=== PATIENT | male | born 1960 | race Caucasian/White ===

== ENCOUNTER 2020-09-06 11:27 | Day surgery (SDC) | payer OTHER, SELFPAY ==
[2020-09-03 10:17] VITALS: BMI 22.2
--- NOTE | 2020-09-04 10:22 | HO.ANESPROP2 ---
Documented by User: Georgia Carbajal 09/05/20 08:27 HPI - Anesthesia Eval Consult details Narrative: 60yo M for Colonoscopy s/p R CEA 12/2019. Stable at PCP visit 06/2020 Per patient, recent eval by life management teacher for floaters on R side. No acute concern. Rx'd glasses. [facility] Past Medical History Medical History Elevated cholesterol History of CVA (cerebrovascular accident) Hypothyroidism Peripheral vascular disease Surgical History Surgical History History of carotid endarterectomy Hx of colonoscopy Social History Social History Alcohol intake: never Smoking Status: Never smoker Use of substances other than those prescribed or required for medical reasons: No Advance Directives: No Advance Directives Information Provided: No Advance Directives on File: No Meds Allergies Allergy/AdvReac Type Severity Reaction Status Date / Time No Known Allergies Allergy Verified 09/04/20 10:24 Home Medications Medication Instructions Recorded Confirmed Type aspirin [Aspir-81] 81 mg PO DAILY 09/02/20 09/02/20 History multivitamin 1 tab PO DAILY 09/02/20 09/02/20 History atorvastatin 80 mg PO BEDTIME 09/03/20 09/03/20 History folic acid 1 mg PO DAILY 09/03/20 09/03/20 History levothyroxine 50 mcg PO DAILY 09/03/20 09/03/20 History Exam Exam Date and Time: September 04, 2020 1022 Height,Weight and Vital Signs: Height 5 ft 10 in Weight 70.307 kg Documented by User: Boubacar Dela Cruz 09/06/20 13:36 [facility] Past Medical History Medical History Elevated cholesterol History of CVA (cerebrovascular accident) Hypothyroidism Peripheral vascular disease Surgical History Surgical History History of carotid endarterectomy Hx of colonoscopy Social History Social History Alcohol intake: never Smoking Status: Never smoker Use of substances other than those prescribed or required for medical reasons: No Advance Directives: No Advance Directives Information Provided: No Advance Directives on File: No Meds Allergies Allergy/AdvReac Type Severity Reaction Status Date / Time No Known Allergies Allergy Verified 09/04/20 10:24 Home Medications Medication Instructions Recorded Confirmed Type aspirin [Aspir-81] 81 mg PO DAILY 09/02/20 09/02/20 History multivitamin 1 tab PO DAILY 09/02/20 09/02/20 History atorvastatin 80 mg PO BEDTIME 09/03/20 09/03/20 History folic acid 1 mg PO DAILY 09/03/20 09/03/20 History levothyroxine 50 mcg PO DAILY 09/03/20 09/03/20 History Exam Airway Mallampati Class: II TM Dist: >3cm Neck ROM: Full
[2020-09-06 12:43] VITALS: BP 139/89; PULSE 60; RESP 18; TEMP 36; O2SAT 99
[2020-09-06] MEDS: Lactated Ringers 1,000 ML 100 ML IVCONT (12:58)
--- NOTE | 2020-09-06 13:41 | MHC.SHP ---
Pre-Procedural Eval Section B Chief Complaint: Screening Details of Present Illness: screening Relevant Family History (Specify if Yes): No Relevant Social History: None Present Medications: see Short Stay Collaborative assessment Medical History: No relevant PMH History of Previous Operations: No relevant previous surgery Allergies: Allergies Allergy/AdvReac Type Severity Reaction Status Date / Time No Known Allergies Allergy Verified 09/04/20 10:24 Review of Systems Sugical H&P ROS: Negative: Constitution, Cardiovascular, Respiratory, Neurological, Psychiatric, Hem-Onc, Allergic/Immunologic, Gastrointestinal, Genitourinary, Musculoskeletal, Integumentary, Endocrine and Eyes/Ears/Nose/Throat Exam Surgical H&P Exam: Normal: HEENT, Normal: Heart, Normal: Lungs, Normal: Extremities, Normal: Abdomen, Normal: Skin and Normal: Neurological Plan Diagnosis/Plan: Unchanged I have reviewed the history and physical and performed a pertinent physical examination on my patient. No changes have occurred unless specified.
[2020-09-06 14:06] VITALS: BP 91/53; PULSE 60; RESP 18; TEMP 36.4; O2SAT 98
--- NOTE | 2020-09-06 14:10 | PM.OP ---
Brief Operative Note Date of Service: 09/06/20 Pre-op diagnosis: screening Post-op diagnosis: same Surgeon: Joseph Peña Anesthesia: MAC Estimated blood loss (mL): 0 Pathology: none sent Condition: stable Disposition: PACU
[2020-09-06 14:20] VITALS: BP 102/65; PULSE 55; RESP 11
[2020-09-06 14:35] VITALS: BP 105/66; PULSE 58; RESP 13; O2SAT 100
[2020-09-06 14:50] VITALS: BP 115/70; PULSE 58; RESP 13; TEMP 36.8; O2SAT 100
--- NOTE | 2020-09-06 23:31 | OP_ITS ---
SURGEON: Joseph Peña MD INDICATIONS: Colon cancer screening. PREOPERATIVE DIAGNOSIS: POSTOPERATIVE DIAGNOSIS: PROCEDURE PERFORMED: Colonoscopy to the terminal ileum. ESTIMATED BLOOD LOSS: COMPLICATIONS: ANESTHESIA: ASSISTANTS: SPECIMENS: MEDICATIONS: Monitored anesthesia care. DESCRIPTION OF PROCEDURE: History and physical performed. The risks and benefits of the procedure were explained to the patient. Informed consent was obtained. The patient was placed in left lateral decubitus position. A digital rectal exam was performed and was found to be normal. The Olympus pediatric video colonoscope was introduced into the rectum and advanced to the cecum without difficulty. The cecum was identified by transillumination, palpation, and identification of ileocecal valve. Examination was performed and the scope was removed. He tolerated the procedure well and was taken to recovery in stable condition. FINDINGS: The terminal ileum was normal. The visualized colonic mucosa was within normal limits without evidence of masses or ulcers. No polyps were identified. The quality of the prep was good. Retroflexed examination showed small internal hemorrhoids. IMPRESSION: Negative screening colonoscopy. RECOMMENDATION: 1. Follow up as needed. 2. Repeat colonoscopy is recommended in 10 years for average risk individuals. MD WILFRED Lyon/JEYL / [id number]
== END 2020-09-06 15:55 | disposition home or self-care (01) ==
PROVIDERS: PCP Family Medicine; Visit Provider Internal Medicine Gastroenterology
PROC: 0DJD8ZZ Inspection of Lower Intestinal Tract, Via Natural or Artificial Opening Endoscopic (ICD-10-PCS; CPT 45378; principal; 2020-09-06 13:40)
DX: Z12.11 Encounter for screening for malignant neoplasm of colon (principal); K64.8 Other hemorrhoids; E78.00 Pure hypercholesterolemia, unspecified; E03.9 Hypothyroidism, unspecified; I73.9 Peripheral vascular disease, unspecified; Z86.73 Personal history of transient ischemic attack (TIA), and cerebral infarction without residual deficits; Z79.82 Long term (current) use of aspirin; Z79.899 Other long term (current) drug therapy
CPT/HCPCS: 45378

== ENCOUNTER 2021-11-07 10:08 | Day surgery (SDC) | payer OTHER, SELFPAY ==
[2021-10-31 15:52] VITALS: BMI 23.6
--- NOTE | 2021-11-06 10:02 | P.CONAN_ITS ---
Documented by User: Georgia Carbajal NP 11/06/21 10:05 HPI - Anesthesia Eval Consult details Narrative: 61yo M for Upper Endoscopy s/p colo 08/2020 with [facility] Active Problems Active Problems: All Active Problems (Updated 09/26/21 @ 10:58 by ALBER Moore) Elevated LFTs (Acute) Macular degeneration (Acute) Anemia (Acute) Hypothyroidism (Acute) Elevated cholesterol (Acute) Past Medical History Medical History (Updated 09/26/21 @ 10:58 by ALBER Moore) Elevated cholesterol Herpesviral infection of urogenital system History of CVA (cerebrovascular accident) Homelessness Hypothyroidism Peripheral vascular disease Surgical History Surgical History History of carotid endarterectomy Hx of colonoscopy Social History Social History Alcohol intake: never Patient Tobacco Use Status: Never used Tobacco Second Hand Smoke Exposure: No Use of substances other than those prescribed or required for medical reasons: No Are you DNR?: No Advance Directives: No Advance Directives Information Provided: Yes Advance Directives on File: No Meds Allergies Allergy/AdvReac Type Severity Reaction Status Date / Time No Known Allergies Allergy Verified 09/04/20 10:24 Home Medications Medication Instructions Recorded Confirmed Last Taken Type aspirin 81 mg tablet,delayed 81 mg PO DAILY 09/02/20 09/02/20 Unknown History release multivitamin 1 tab PO DAILY 09/02/20 09/02/20 Unknown History atorvastatin 80 mg tablet 80 mg PO BEDTIME 09/03/20 09/03/20 Unknown History folic acid 1 mg tablet 1 mg PO DAILY 09/03/20 09/03/20 Unknown History levothyroxine 50 mcg capsule 50 mcg PO DAILY 09/03/20 09/03/20 Unknown History Exam Exam Date and Time: November 06, 2021 1002 Height,Weight and Vital Signs: Height 5 ft 10 in Weight 74.843 kg Assessment and Plan Assessment Anesthesia Assessment: Chart Reviewed Documented by User: Pat Dela Cruz MD 11/07/21 11:30 [facility] Past Medical History Medical History (Updated 09/26/21 @ 10:58 by ALBER Moore) Elevated cholesterol Herpesviral infection of urogenital system History of CVA (cerebrovascular accident) Homelessness Hypothyroidism Peripheral vascular disease Family History Family history of problems with anesthesia: No Surgical History Surgical History History of carotid endarterectomy Hx of colonoscopy History of Problems with Anesthesia: No Social History Social History Alcohol intake: never Patient Tobacco Use Status: Never used Tobacco Second Hand Smoke Exposure: No Use of substances other than those prescribed or required for medical reasons: No Are you DNR?: No Advance Directives: No Advance Directives Information Provided: Yes Advance Directives on File: No Meds Allergies Allergy/AdvReac Type Severity Reaction Status Date / Time No Known Allergies Allergy Verified 09/04/20 10:24 Home Medications Medication Instructions Recorded Confirmed Last Taken Type aspirin 81 mg tablet,delayed 81 mg PO DAILY 09/02/20 09/02/20 Unknown History release multivitamin 1 tab PO DAILY 09/02/20 09/02/20 Unknown History atorvastatin 80 mg tablet 80 mg PO BEDTIME 09/03/20 09/03/20 Unknown History folic acid 1 mg tablet 1 mg PO DAILY 09/03/20 09/03/20 Unknown History levothyroxine 50 mcg capsule 50 mcg PO DAILY 09/03/20 09/03/20 Unknown History Exam Airway Mallampati Class: II TM Dist: >3cm Neck ROM: Full Heart: RRR Lungs: CTA Assessment and Plan Final Anesthetic Review Family History of Problems with Anesthesia: No History of Problems with Anesthesia: No NPO: Yes ASA Class: II Final Preanesthetic Review: No Changes in Pt Med Stat, Meds/Allgs Chart Reviewed, Consent Obtained/Reviewed and Anes Risks/Benef Reviewed Patient Risk: Low Procedure Risk: Low Anesthetic Plan Anesthetic Plan: MAC: Disposition: Standard PACU
[2021-11-07 10:33] VITALS: BP 114/68; PULSE 53; RESP 18; TEMP 36.3; O2SAT 99
[2021-11-07] MEDS: Lactated Ringers 1,000 ML 100 ML IVCONT (10:39)
--- NOTE | 2021-11-07 11:46 | MHC.SHP ---
Pre-Procedural Eval Section A Date of Service: 11/07/21 The patient is an INPATIENT: No Changes since office visit: No Cold of Flu in the past 2 weeks, No New Medical Problems, No Changes in Medication and No Patient answered all questions The History & Physical has been completed within 30 days and I have reviewed it.: Yes Section B Chief Complaint: dysphagia, cirrhosis of liver Allergies: Allergies Allergy/AdvReac Type Severity Reaction Status Date / Time No Known Allergies Allergy Verified 09/04/20 10:24 Plan I have reviewed the history and physical and performed a pertinent physical examination on my patient. No changes have occurred unless specified.
[2021-11-07 12:14] VITALS: BP 101/46; PULSE 59; RESP 16; TEMP 36.4; O2SAT 94
--- NOTE | 2021-11-07 12:18 | PM.OP ---
Brief Operative Note Date of Service: 11/07/21 Pre-op diagnosis: dysphagia cirrhosis Post-op diagnosis: same (normal) Procedure: egd Surgeon: Joseph Peña Anesthesia: MAC Was an [employer] Installation [employer] used for this Procedure?: No Estimated blood loss (mL): 5 Pathology: other Condition: stable Disposition: PACU
--- NOTE | 2021-11-07 12:18 | HO.POSTANES ---
Post Anesthesia Evaluation Post Anesthesia Evaluation Vital Signs: Vital Signs Temp Pulse Resp BP Pulse Ox 11/07/21 10:33 97.4 F 53 18 114/68 99 Anesthesia: Monitored Mental Status: Awake Pain Control: Satisfactory Nausea/Vomiting: None Hydration: Adequate Anesthesia-Related Issues: No Anes. Related Issues
[2021-11-07 12:29] VITALS: BP 102/67; PULSE 59; RESP 16; TEMP 36.4; O2SAT 96
--- NOTE | 2021-11-07 13:03 | OP_ITS ---
SURGEON: Joseph Peña MD INDICATIONS: Dysphagia and elevated liver function tests, rule out cirrhosis. PREOPERATIVE DIAGNOSIS: POSTOPERATIVE DIAGNOSIS: PROCEDURE PERFORMED: Upper endoscopy with biopsy. ESTIMATED BLOOD LOSS: COMPLICATIONS: ANESTHESIA: ASSISTANTS: SPECIMENS: MEDICATIONS: Monitored anesthesia care. DESCRIPTION OF PROCEDURE: History and physical were performed. The risks and benefits of the procedure were explained to the patient. Informed consent was obtained. The patient was placed in left lateral decubitus position. The Olympus video gastroscope was introduced into the esophagus, stomach, and duodenum. Examination was performed. The scope was removed. He tolerated the procedure well and was taken to recovery area in stable condition. FINDINGS: Esophagus: The esophagus was normal. The EG junction was slightly irregular. There was no esophagitis. There were no varices. Biopsies were obtained from the EG junction. Stomach: The stomach showed no evidence of masses, ulcers, or polyps. Antral biopsies were obtained. Duodenum: The bulb and second portion were normal. Random 2nd portion biopsies were obtained. IMPRESSION: Normal upper endoscopy. RECOMMENDATION: Follow up the biopsy results. MD WILFRED Lyon/RAHEEL / [id number]
== END 2021-11-07 12:57 | disposition home or self-care (01) ==
PROVIDERS: PCP Internal Medicine; Visit Provider Internal Medicine Gastroenterology
PROC: 0DJ08ZZ Inspection of Upper Intestinal Tract, Via Natural or Artificial Opening Endoscopic (ICD-10-PCS; CPT 43235; principal; 2021-11-07 11:30)
DX: K74.69 Other cirrhosis of liver (principal); R13.19 Other dysphagia; E78.5 Hyperlipidemia, unspecified; E03.9 Hypothyroidism, unspecified; R73.9 Hyperglycemia, unspecified; B00.9 Herpesviral infection, unspecified; Z86.73 Personal history of transient ischemic attack (TIA), and cerebral infarction without residual deficits; Z79.82 Long term (current) use of aspirin; Z79.899 Other long term (current) drug therapy
CPT/HCPCS: 43239; 88305; 88342

== ENCOUNTER 2023-04-21 09:43 | Outpatient (REF) | payer OTHER, SELFPAY ==
[2023-04-21 10:05] LABS: MANUAL DIFF FLAG NO
[2023-04-21 10:17] LABS: Basophils Percent Auto 0.6 % (0-2); Eosinophils Absolute Auto 0.1 X10*3/uL (0.0-0.4); Hemoglobin 12.6 g/dl (14.0-18.0); Imm Gran Abs Auto 0.01 X10*3/uL (0.00-0.03); Imm Gran Pct Auto 0.3 % (0.0-0.4); Lymphocytes Absolute Auto 0.8 X10*3/uL (1.2-4.9); Mean Corpuscular HGB Conc 34.1 g/dl (31.0-36.0); Mean Corpuscular Hemoglobin 34.7 pg (27.0-33.0); Mean Corpuscular Volume 101.9 fL (80.0-98.0); Mean Platelet Volume 9.3 fL (9.4-12.4); Monocytes Absolute Auto 0.3 X10*3/uL (0.1-1.2); Monocytes Percent Auto 8.2 % (2-11); Neutrophils Absolute Auto 2.1 x10*3/uL (2.0-8.3); Neutrophils Percent Auto 64.9 % (45-73); Platelet Count 173 X10*3/uL (160-400); Red Blood Count 3.63 X10*6/uL (4.60-5.80); Red Cell Distribution Width 12.3 % (11.0-16.0); White Blood Count 3.3 X10*3/uL (4.8-10.8)
[2023-04-21 10:22] LABS: INTERNATIONAL NORM RATIO 0.9 (0.9-1.1); Prothrombin Time 10.8 SEC (11.1-13.3)
[2023-04-21 10:45] LABS: Alanine Aminotransferase 36 U/L (0-40); Albumin Level 3.9 g/dL (3.5-5.0); Alkaline Phosphatase 132 U/L (39-117); Aspartate Amino Transferase 33 U/L (5-37); Bilirubin Direct 0.5 mg/dL (0.0-0.5); Bilirubin Total 1.3 mg/dL (0.0-1.0); Total Protein 6.2 g/dL (6.5-8.0)
[2023-04-26 15:04] LABS: FIB-ALT 33 U/L (9-46); FIB-Alpha-2-Macroglobulin 188 mg/dL (106-279); FIB-Apolipoprotein A1 150 mg/dL (94-176); FIB-GGT 57 U/L (3-70); FIB-Haptoglobin 55 mg/dL (43-212); FIB-Total Bilirubin 1.2 mg/dL (0.2-1.2); Liver Fibrosis Stage F3; Nec Inflam Act Grade A0-A1; Nec Inflam Act Score 0.24
== END 2023-04-21 09:44 | disposition home or self-care (01) ==
LOC: HO.LAB 09:43
PROVIDERS: PCP Family Medicine; Visit Provider Internal Medicine Gastroenterology
DX: K75.81 Nonalcoholic steatohepatitis (NASH) (principal)
CPT/HCPCS: 36415; 80076; 81596; 85025; 85610

== ENCOUNTER 2024-04-24 09:34 | Outpatient (REF) | payer OTHER, SELFPAY ==
[2024-04-24 10:19] LABS: MANUAL DIFF FLAG NO
[2024-04-24 11:08] LABS: Basophils Percent Auto 0.6 % (0-2); Eosinophils Absolute Auto 0.1 X10*3/uL (0.0-0.4); Eosinophils Percent Auto 1.7 % (0-4); Hematocrit 39.6 % (42.0-52.0); Hemoglobin 13.9 g/dl (14.0-18.0); Imm Gran Abs Auto 0.01 X10*3/uL (0.00-0.03); Imm Gran Pct Auto 0.3 % (0.0-0.4); Lymphocytes Percent Auto 28.9 % (20-40); Mean Corpuscular HGB Conc 35.1 g/dl (31.0-36.0); Mean Corpuscular Hemoglobin 35.5 pg (27.0-33.0); Mean Platelet Volume 9.7 fL (9.4-12.4); Monocytes Absolute Auto 0.3 X10*3/uL (0.1-1.2); Monocytes Percent Auto 8.8 % (2-11); Neutrophils Absolute Auto 2.1 x10*3/uL (2.0-8.3); Neutrophils Percent Auto 59.7 % (45-73); Platelet Count 174 X10*3/uL (160-400); Red Blood Count 3.92 X10*6/uL (4.60-5.80); Red Cell Distribution Width 12.5 % (11.0-16.0); White Blood Count 3.5 X10*3/uL (4.8-10.8)
[2024-04-24 11:13] LABS: INTERNATIONAL NORM RATIO 0.9 (0.9-1.1); Prothrombin Time 10.8 SEC (11.1-13.3)
[2024-04-24 12:13] LABS: Alanine Aminotransferase 75 U/L (0-40); Albumin Level 3.9 g/dL (3.5-5.0); Alkaline Phosphatase 198 U/L (39-117); Aspartate Amino Transferase 52 U/L (5-37); Bilirubin Direct 0.3 mg/dL (0.0-0.5); Bilirubin Total 1.1 mg/dL (0.0-1.0); Total Protein 6.1 g/dL (6.5-8.0)
[2024-05-02 07:04] LABS: FIB-ALT 67 U/L (9-46); FIB-Alpha-2-Macroglobulin 176 mg/dL (106-279); FIB-Apolipoprotein A1 160 mg/dL (94-176); FIB-GGT 133 U/L (3-70); FIB-Haptoglobin 35 mg/dL (43-212); FIB-Total Bilirubin 1.1 mg/dL (0.2-1.2); Liver Fibrosis Score 0.68; Liver Fibrosis Stage F3; Nec Inflam Act Grade A2; Nec Inflam Act Score 0.55
== END 2024-04-24 09:35 | disposition home or self-care (01) ==
LOC: HO.LAB 09:34
PROVIDERS: PCP Family Medicine; Visit Provider Internal Medicine Gastroenterology
DX: K75.81 Nonalcoholic steatohepatitis (NASH) (principal)
CPT/HCPCS: 36415; 80076; 81596; 85025; 85610

== ENCOUNTER 2024-05-05 08:43 | Outpatient (REF) | payer OTHER, SELFPAY ==
--- NOTE | ~2024-05-05 | US_ITS ---
EXAMINATION: US ABDOMEN COMPLETE CLINICAL INFORMATION: JUAN. COMPARISON: None available. TECHNIQUE: Real-time imaging of the abdominal viscera. FINDINGS: PANCREAS: The visualized portions of the pancreas are unremarkable but a large portion of the gland is obscured by bowel gas. ABDOMINAL AORTA: The distal aorta was obscured by bowel gas and could not be seen. An abdominal aortic aneurysm is not detected INFERIOR VENA CAVA: Normal LIVER: The liver is normal in size. The liver contour is normal. Parenchymal echogenicity is normal. No focal hepatic lesion. There is no intrahepatic biliary duct dilatation seen. GALLBLADDER: The gallbladder is physiologically distended without evidence of stones, sludge, polyps, wall thickening or pericholecystic fluid. COMMON BILE DUCT: Normal in caliber measuring 0.3 cm in diameter. RIGHT KIDNEY: Normal. No hydronephrosis. No renal calculi or focal parenchymal lesions. The kidney measures 9.4 cm in maximum dimension. LEFT KIDNEY: Normal. No hydronephrosis. No renal calculi or focal parenchymal lesions. The kidney measures 10.2 cm in maximum dimension. SPLEEN: Normal. The spleen measures 8.3 cm in maximum dimension. FREE FLUID: None. US/US abdomen complete IMPRESSION: No significant abnormality is seen. Electronically signed by: Roberto Tabares MD 06/22/2024 01:11 PM [facility] [place]
== END 2024-05-05 08:44 | disposition home or self-care (01) ==
LOC: HO.US 08:43
PROVIDERS: PCP Family Medicine; Visit Provider Internal Medicine Gastroenterology
DX: K75.81 Nonalcoholic steatohepatitis (NASH) (principal)
CPT/HCPCS: 76700